=== PATIENT | female | born 1995 | race African-American/Black ===

== ENCOUNTER 2017-12-23 15:51 | Emergency (ER) | payer OTHER ==
[~2017-12-23] VITALS: Ht 162.6 cm; Wt 49.0 kg
[2017-12-23 16:19] LABS: HEMOGLOBIN 13.3 G/DL (11.9-15.5); MCH 29.3 PG (29.0-34.0); MCHC 33.3 G/DL (30.0-36.0); MCV 88.1 FL (83-99); PLATELET COUNT 207 K/uL (156-360); RBC DIS.WIDTH-CV 11.9 % (11.8-14.6); RBC DIS.WIDTH-SD 38.4 % (39-53); RED BLOOD COUNT 4.54 M/uL (3.80-5.20); WHITE BLOOD COUNT 7.5 K/uL (4.1-10.2)
[2017-12-23 16:32] LABS: CHLORIDE 103 mEq/L (99-109); POTASSIUM 4.1 mEq/L (3.7-5.4); SODIUM 137 mEq/L (136-147)
[2017-12-23 16:33] LABS: GLUCOSE 81 mg/dL (70-99)
[2017-12-23 16:37] LABS: CREATININE 0.7 mg/dL (0.6-1.3); GFR ESTIMATE (CALCULATED) > 59 mL/min/
[2017-12-23 16:38] LABS: UREA NITROGEN (BUN) 10 mg/dL (9-23)
[2017-12-23] MEDS ORDERED: PREDNISONE10 M1 PO (18:07)
[2017-12-23] MEDS ORDERED: AMOXICILLIN875 MG PO (18:07)
[2017-12-23 18:21] VITALS: BP 111/89
[2017-12-23 19:09] LABS: QUANTITATIVE HCG < 4.0 MIU/ML
== END 2017-12-23 18:23 | disposition home or self-care (01) ==
LOC: EME 15:51
DX: J06.9 Acute upper respiratory infection, unspecified (principal); F17.200 Nicotine dependence, unspecified, uncomplicated; Z79.3 Long term (current) use of hormonal contraceptives
CPT/HCPCS: 71046; 80048; 84702; 85027; 99281; 99284